=== PATIENT | female | born 1950 | race Caucasian/White ===

== ENCOUNTER 2022-08-22 13:36 | Inpatient (IN) | payer MEDICARE ==
[2022-08-22 14:07] VITALS: BMI 23.4
[2022-08-22] MEDS ORDERED: Ondansetron PF 4 MG/2 ML Vial IVP PRN (19:13)
[2022-08-22] MEDS: Atorvastatin Calcium 10 MG TAB PO SCH (20:52)
[2022-08-22] MEDS: Ascorbic Acid 500 mg Chewable Tablet PO SCH (20:52)
[2022-08-22] MEDS: levETIRAcetam 500 MG TAB PO SCH (20:52)
[2022-08-22] MEDS: Carvedilol 6.25 MG TAB PO SCH (20:52)
[2022-08-22] MEDS: Magnesium Oxide 400 MG TAB PO SCH (20:53)
[2022-08-22] MEDS: Senokot S 8.6-50 MG TAB PO SCH (20:53)
[2022-08-22] MEDS: Lantus 1000 UNITS/10 ML VIAL SC SCH (20:53)
[2022-08-23] MEDS: Carvedilol 6.25 MG TAB PO SCH ×2 (09:09→20:26)
[2022-08-23] MEDS: Allopurinol 100 MG TAB PO SCH (09:10)
[2022-08-23] MEDS: Calcitriol 0.25 MCG CAP PO SCH (09:10)
[2022-08-23] MEDS: Ascorbic Acid 500 mg Chewable Tablet PO SCH ×2 (09:11→20:26)
[2022-08-23] MEDS: glyBURIDE 5 MG TAB PO SCH ×2 (09:11→17:25)
[2022-08-23] MEDS: Ferrous Gluconate 324 MG TAB PO SCH (09:12)
[2022-08-23] MEDS: Famotidine 20 MG TAB PO SCH (09:12)
[2022-08-23] MEDS: Magnesium Oxide 400 MG TAB PO SCH ×2 (09:12→20:29)
[2022-08-23] MEDS: Lantus 1000 UNITS/10 ML VIAL SC SCH ×2 (09:12→20:26)
[2022-08-23] MEDS: Furosemide 40 MG TAB PO SCH (09:12)
[2022-08-23] MEDS: levETIRAcetam 500 MG TAB PO SCH ×2 (10:27→20:26)
[2022-08-23] MEDS: Senokot S 8.6-50 MG TAB PO SCH ×2 (10:28→20:25)
[2022-08-23] MEDS ORDERED: Acetaminophen 500 MG TAB PO PRN (12:56)
[2022-08-23] MEDS ORDERED: HumaLOG 300 UNITS/3 ML VIAL SC PRN (14:11)
[2022-08-23] MEDS ORDERED: Dextrose 50% Abboject 50 ML SYRINGE SLOW IVP PRN (14:11)
[2022-08-23] MEDS ORDERED: Dextrose 5% in Water 1,000 ML IV PRN (14:11)
[2022-08-23] MEDS: HumaLOG 300 UNITS/3 ML VIAL SC PRN ×2 (14:51→17:25)
[2022-08-23] MEDS: Atorvastatin Calcium 10 MG TAB PO SCH (20:26)
[2022-08-24] MEDS: glyBURIDE 5 MG TAB PO SCH ×2 (09:00→17:00)
[2022-08-24] MEDS: Allopurinol 100 MG TAB PO SCH (09:40)
[2022-08-24] MEDS: Calcitriol 0.25 MCG CAP PO SCH (09:40)
[2022-08-24] MEDS: levETIRAcetam 500 MG TAB PO SCH (09:40)
[2022-08-24] MEDS: Magnesium Oxide 400 MG TAB PO SCH (09:40)
[2022-08-24] MEDS: Carvedilol 6.25 MG TAB PO SCH (09:40)
[2022-08-24] MEDS: Ferrous Gluconate 324 MG TAB PO SCH (09:40)
[2022-08-24] MEDS: Lantus 1000 UNITS/10 ML VIAL SC SCH (09:40)
[2022-08-24] MEDS: Famotidine 20 MG TAB PO SCH (09:40)
[2022-08-24] MEDS: Senokot S 8.6-50 MG TAB PO SCH (09:40)
[2022-08-24] MEDS: Ascorbic Acid 500 mg Chewable Tablet PO SCH (09:40)
[2022-08-24] MEDS: Furosemide 40 MG TAB PO SCH (09:40)
[2022-08-24] MEDS ORDERED: Acetaminophen 500 MG TAB PO PRN (21:04)
[2022-08-24] MEDS: Ciprofloxacin 500 MG TAB PO SCH (21:05)
[2022-08-24] MEDS ORDERED: Dextrose 5% in Water 1,000 ML IV PRN (21:15)
[2022-08-24] MEDS ORDERED: Dextrose 50% Abboject 50 ML SYRINGE SLOW IVP PRN (21:15)
[2022-08-24] MEDS ORDERED: Ondansetron PF 4 MG/2 ML Vial IVP PRN (22:43)
[2022-08-24] MEDS: HumaLOG 300 UNITS/3 ML VIAL SC PRN (22:49)
[2022-08-24] MEDS ORDERED: levETIRAcetam 500 MG TAB PO SCH (23:00)
[2022-08-24] MEDS ORDERED: Ascorbic Acid 500 mg Chewable Tablet PO SCH (23:00)
[2022-08-24] MEDS ORDERED: Senokot S 8.6-50 MG TAB PO SCH (23:00)
[2022-08-24] MEDS ORDERED: Atorvastatin Calcium 10 MG TAB PO SCH (23:00)
[2022-08-24] MEDS ORDERED: Magnesium Oxide 400 MG TAB PO SCH (23:00)
[2022-08-24] MEDS ORDERED: Carvedilol 6.25 MG TAB PO SCH (23:00)
[2022-08-24] MEDS ORDERED: Lantus 1000 UNITS/10 ML VIAL SC SCH (23:00)
[2022-08-25] MEDS: Lantus 1000 UNITS/10 ML VIAL SC SCH ×4 (00:32→20:36)
[2022-08-25] MEDS: Carvedilol 6.25 MG TAB PO SCH ×3 (00:32→21:30)
[2022-08-25] MEDS: Ascorbic Acid 500 mg Chewable Tablet PO SCH ×3 (00:32→21:31)
[2022-08-25] MEDS: Atorvastatin Calcium 10 MG TAB PO SCH ×2 (00:32→21:30)
[2022-08-25] MEDS: Senokot S 8.6-50 MG TAB PO SCH ×3 (00:33→21:30)
[2022-08-25] MEDS: levETIRAcetam 500 MG TAB PO SCH ×3 (00:33→21:30)
[2022-08-25] MEDS: Magnesium Oxide 400 MG TAB PO SCH ×3 (00:33→21:33)
[2022-08-25] MEDS: Ciprofloxacin 500 MG TAB PO SCH ×2 (05:49→20:22)
[2022-08-25] MEDS: Allopurinol 100 MG TAB PO SCH (09:11)
[2022-08-25] MEDS: Calcitriol 0.25 MCG CAP PO SCH (09:11)
[2022-08-25] MEDS: glyBURIDE 5 MG TAB PO SCH ×2 (09:11→17:58)
[2022-08-25] MEDS: Ferrous Gluconate 324 MG TAB PO SCH (09:11)
[2022-08-25] MEDS: Furosemide 40 MG TAB PO SCH (09:12)
[2022-08-25] MEDS: Famotidine 20 MG TAB PO SCH (09:13)
[2022-08-25] MEDS: Acetaminophen 500 MG TAB PO PRN (09:13)
[2022-08-25] MEDS: HumaLOG 300 UNITS/3 ML VIAL SC PRN ×2 (12:22→20:36)
[2022-08-26] MEDS: Ciprofloxacin 500 MG TAB PO SCH ×2 (05:15→21:00)
[2022-08-26] MEDS: Carvedilol 6.25 MG TAB PO SCH ×2 (10:04→21:00)
[2022-08-26] MEDS: Allopurinol 100 MG TAB PO SCH (10:05)
[2022-08-26] MEDS: Calcitriol 0.25 MCG CAP PO SCH (10:06)
[2022-08-26] MEDS: Senokot S 8.6-50 MG TAB PO SCH ×2 (10:06→21:00)
[2022-08-26] MEDS: levETIRAcetam 500 MG TAB PO SCH ×2 (10:06→21:00)
[2022-08-26] MEDS: Magnesium Oxide 400 MG TAB PO SCH ×2 (10:07→21:01)
[2022-08-26] MEDS: glyBURIDE 5 MG TAB PO SCH ×2 (10:07→17:45)
[2022-08-26] MEDS: Furosemide 40 MG TAB PO SCH (10:07)
[2022-08-26] MEDS: Ferrous Gluconate 324 MG TAB PO SCH (10:07)
[2022-08-26] MEDS: Ascorbic Acid 500 mg Chewable Tablet PO SCH ×2 (10:07→21:00)
[2022-08-26] MEDS: Famotidine 20 MG TAB PO SCH (10:07)
[2022-08-26] MEDS: Lantus 1000 UNITS/10 ML VIAL SC SCH ×2 (10:08→21:01)
[2022-08-26] MEDS: HumaLOG 300 UNITS/3 ML VIAL SC PRN ×2 (12:39→17:45)
[2022-08-26] MEDS ORDERED: Nystatin Cream 15 GM TUBE TOP SCH (21:00)
[2022-08-26] MEDS: Nystatin Powder 15 GM BOT TOP SCH (21:01)
[2022-08-26] MEDS: Atorvastatin Calcium 10 MG TAB PO SCH (21:01)
[2022-08-27] MEDS: Ciprofloxacin 500 MG TAB PO SCH ×2 (05:21→20:14)
[2022-08-27] MEDS: Nystatin Powder 15 GM BOT TOP SCH ×2 (09:00→22:00)
[2022-08-27] MEDS: Allopurinol 100 MG TAB PO SCH (09:13)
[2022-08-27] MEDS: glyBURIDE 5 MG TAB PO SCH ×2 (09:14→17:54)
[2022-08-27] MEDS: Carvedilol 6.25 MG TAB PO SCH ×2 (09:14→20:14)
[2022-08-27] MEDS: Calcitriol 0.25 MCG CAP PO SCH (09:14)
[2022-08-27] MEDS: Senokot S 8.6-50 MG TAB PO SCH ×2 (09:14→20:18)
[2022-08-27] MEDS: Ferrous Gluconate 324 MG TAB PO SCH (09:15)
[2022-08-27] MEDS: Famotidine 20 MG TAB PO SCH (09:15)
[2022-08-27] MEDS: Furosemide 40 MG TAB PO SCH (09:15)
[2022-08-27] MEDS: Ascorbic Acid 500 mg Chewable Tablet PO SCH ×2 (09:15→20:14)
[2022-08-27] MEDS: Magnesium Oxide 400 MG TAB PO SCH ×3 (09:16→20:19)
[2022-08-27] MEDS: Lantus 1000 UNITS/10 ML VIAL SC SCH ×2 (09:18→22:00)
[2022-08-27] MEDS: levETIRAcetam 500 MG TAB PO SCH ×2 (09:18→20:14)
[2022-08-27] MEDS: HumaLOG 300 UNITS/3 ML VIAL SC PRN (13:18)
[2022-08-27] MEDS: Atorvastatin Calcium 10 MG TAB PO SCH (20:14)
[2022-08-28 05:36] LABS: Anion Gap 13 mmol/L (10-20); BUN (Urea Nitrogen) 59 mg/dL (9.8-20.1); Calc. Creatinine Clearance 17 mL/min (70-130); Calcium 9.8 mg/dL (7.8-10.44); Carbon Dioxide 24 mmol/L (23-31); Chloride 100 mmol/L (98-107); Estimated GFR 19; Glucose 89 mg/dL (83-110); Potassium 4.1 mmol/L (3.5-5.1); Sodium 133 mmol/L (136-145)
[2022-08-28] MEDS: Ciprofloxacin 500 MG TAB PO SCH (06:06)
[2022-08-28] MEDS: Ascorbic Acid 500 mg Chewable Tablet PO SCH ×2 (09:01→21:21)
[2022-08-28] MEDS: glyBURIDE 5 MG TAB PO SCH ×2 (09:01→17:36)
[2022-08-28] MEDS: Calcitriol 0.25 MCG CAP PO SCH (09:01)
[2022-08-28] MEDS: Carvedilol 6.25 MG TAB PO SCH ×2 (09:02→21:21)
[2022-08-28] MEDS: Allopurinol 100 MG TAB PO SCH (09:03)
[2022-08-28] MEDS: levETIRAcetam 500 MG TAB PO SCH ×2 (09:05→21:21)
[2022-08-28] MEDS: Ferrous Gluconate 324 MG TAB PO SCH (09:05)
[2022-08-28] MEDS: Nystatin Powder 15 GM BOT TOP SCH ×2 (09:05→21:23)
[2022-08-28] MEDS: Famotidine 20 MG TAB PO SCH (09:05)
[2022-08-28] MEDS: Magnesium Oxide 400 MG TAB PO SCH ×2 (09:07→21:30)
[2022-08-28] MEDS: Senokot S 8.6-50 MG TAB PO SCH ×2 (09:09→21:00)
[2022-08-28] MEDS: Lantus 1000 UNITS/10 ML VIAL SC SCH (09:11)
[2022-08-28] MEDS: Acetaminophen 500 MG TAB PO PRN (09:12)
[2022-08-28] MEDS: Furosemide 40 MG TAB PO SCH (15:10)
[2022-08-28] MEDS: Atorvastatin Calcium 10 MG TAB PO SCH (21:21)
[2022-08-29] MEDS: Ciprofloxacin 500 MG TAB PO SCH (05:30)
[2022-08-29] MEDS: Magnesium Oxide 400 MG TAB PO SCH ×2 (09:10→21:12)
[2022-08-29] MEDS: levETIRAcetam 500 MG TAB PO SCH ×2 (09:10→21:11)
[2022-08-29] MEDS: glyBURIDE 5 MG TAB PO SCH ×2 (09:10→17:45)
[2022-08-29] MEDS: Ferrous Gluconate 324 MG TAB PO SCH (09:11)
[2022-08-29] MEDS: Carvedilol 6.25 MG TAB PO SCH ×2 (09:11→21:11)
[2022-08-29] MEDS: Calcitriol 0.25 MCG CAP PO SCH (09:12)
[2022-08-29] MEDS: Ascorbic Acid 500 mg Chewable Tablet PO SCH ×2 (09:13→21:12)
[2022-08-29] MEDS: Famotidine 20 MG TAB PO SCH (09:13)
[2022-08-29] MEDS: Allopurinol 100 MG TAB PO SCH (09:13)
[2022-08-29] MEDS: Furosemide 40 MG TAB PO SCH (09:14)
[2022-08-29] MEDS: Nystatin Powder 15 GM BOT TOP SCH ×2 (10:00→21:12)
[2022-08-29] MEDS: Senokot S 8.6-50 MG TAB PO SCH ×2 (10:29→21:00)
[2022-08-29] MEDS: Atorvastatin Calcium 10 MG TAB PO SCH (21:11)
[2022-08-30] MEDS: Ciprofloxacin 500 MG TAB PO SCH (05:14)
[2022-08-30] MEDS: Calcitriol 0.25 MCG CAP PO SCH (09:04)
[2022-08-30] MEDS: Famotidine 20 MG TAB PO SCH (09:04)
[2022-08-30] MEDS: levETIRAcetam 500 MG TAB PO SCH ×2 (09:04→22:09)
[2022-08-30] MEDS: Ascorbic Acid 500 mg Chewable Tablet PO SCH ×2 (09:05→22:08)
[2022-08-30] MEDS: Ferrous Gluconate 324 MG TAB PO SCH (09:05)
[2022-08-30] MEDS: Allopurinol 100 MG TAB PO SCH (09:05)
[2022-08-30] MEDS: Acetaminophen 500 MG TAB PO PRN (09:06)
[2022-08-30] MEDS: glyBURIDE 5 MG TAB PO SCH ×2 (09:06→17:33)
[2022-08-30] MEDS: Carvedilol 6.25 MG TAB PO SCH ×2 (09:08→22:09)
[2022-08-30] MEDS: Magnesium Oxide 400 MG TAB PO SCH ×2 (09:09→22:08)
[2022-08-30] MEDS: Senokot S 8.6-50 MG TAB PO SCH ×2 (09:09→22:10)
[2022-08-30] MEDS: Furosemide 40 MG TAB PO SCH (09:11)
[2022-08-30] MEDS: Nystatin Powder 15 GM BOT TOP SCH ×2 (09:11→22:09)
[2022-08-30] MEDS: HumaLOG 300 UNITS/3 ML VIAL SC PRN (13:04)
[2022-08-30] MEDS: Atorvastatin Calcium 10 MG TAB PO SCH (22:09)
[2022-08-31] MEDS: Ciprofloxacin 500 MG TAB PO SCH (05:05)
[2022-08-31 05:45] LABS: ALT (SGPT) 80 U/L (8-55); AST (SGOT) 58 U/L (5-34); Albumin 2.6 g/dL (3.4-4.8); Alkaline Phosphatase 165 U/L (40-110); Anion Gap 12 mmol/L (10-20); BUN (Urea Nitrogen) 66 mg/dL (9.8-20.1); Bilirubin, Total 0.4 mg/dL (0.2-1.2); Calc. Creatinine Clearance 17 mL/min (70-130); Calcium 9.6 mg/dL (7.8-10.44); Carbon Dioxide 24 mmol/L (23-31); Chloride 105 mmol/L (98-107); Estimated GFR 19; Globulin 4.2 g/dL (2.4-3.5); Glucose 151 mg/dL (83-110); Potassium 4.6 mmol/L (3.5-5.1); Protein, Total 6.8 g/dL (5.8-8.1); Sodium 136 mmol/L (136-145)
[2022-08-31 05:55] LABS: #Basophils 0.1 thou/uL (0.0-0.2); #Eosinphils 0.1 thou/uL (0.0-0.7); #Lymphocytes 2.1 thou/uL (1.20-3.40); #Monocytes 0.6 thou/uL (0.11-0.59); #Neutrophils 5.9 thou/uL (1.40-6.50); %Basophils 1.3 % (0.0-1.0); %Eosinophils 0.9 % (0.0-10.0); %Lymphocytes 23.9 % (21.0-51.0); %Monocytes 7.1 % (0.0-10.0); %Neutrophils 66.8 % (42.0-75.0); Hemoglobin 7.1 g/dL (12.0-16.0); Mean Corpuscular HGB CONC 30.8 g/dL (32.0-36.0); Mean Corpuscular Hemoglobin 28.1 pg (27.0-31.0); Mean Corpuscular Volume 91.3 fl (78.0-98.0); Mean Platelet Volume 8.6 fL (7.4-10.4); Platelet Count 541 10x3/uL (130-400); RBC Distribution Width 16.9 % (11.5-14.5); Red Blood Cell (RBC) Count 2.53 mill/uL (4.20-5.40); White Blood Cell (WBC) Count 8.9 10x3/uL (4.8-10.8)
[2022-08-31 07:12] LABS: MDiff Complete? YES
[2022-08-31] MEDS: levETIRAcetam 500 MG TAB PO SCH ×2 (09:29→20:33)
[2022-08-31] MEDS: Magnesium Oxide 400 MG TAB PO SCH ×2 (09:29→20:33)
[2022-08-31] MEDS: Acetaminophen 500 MG TAB PO PRN (09:30)
[2022-08-31] MEDS: Ferrous Gluconate 324 MG TAB PO SCH (09:30)
[2022-08-31] MEDS: Allopurinol 100 MG TAB PO SCH (09:31)
[2022-08-31] MEDS: Calcitriol 0.25 MCG CAP PO SCH (09:31)
[2022-08-31] MEDS: glyBURIDE 5 MG TAB PO SCH ×2 (09:31→17:14)
[2022-08-31] MEDS: Famotidine 20 MG TAB PO SCH (09:31)
[2022-08-31] MEDS: Carvedilol 6.25 MG TAB PO SCH ×2 (09:32→20:33)
[2022-08-31] MEDS: Nystatin Powder 15 GM BOT TOP SCH ×2 (09:32→20:43)
[2022-08-31] MEDS: Ascorbic Acid 500 mg Chewable Tablet PO SCH ×2 (09:32→20:33)
[2022-08-31] MEDS: Senokot S 8.6-50 MG TAB PO SCH ×2 (09:32→20:44)
[2022-08-31] MEDS: Furosemide 40 MG TAB PO SCH (17:14)
[2022-08-31] MEDS ORDERED: Furosemide 40 MG TAB PO PRN (20:00)
[2022-08-31] MEDS: Atorvastatin Calcium 10 MG TAB PO SCH (20:33)
[2022-08-31] MEDS: HumaLOG 300 UNITS/3 ML VIAL SC PRN (20:38)
[2022-09-01] MEDS: Nystatin Powder 15 GM BOT TOP SCH ×2 (08:23→20:45)
[2022-09-01] MEDS: Calcitriol 0.25 MCG CAP PO SCH (08:23)
[2022-09-01] MEDS: Carvedilol 6.25 MG TAB PO SCH ×3 (08:24→20:44)
[2022-09-01] MEDS: Allopurinol 100 MG TAB PO SCH (08:24)
[2022-09-01] MEDS: Magnesium Oxide 400 MG TAB PO SCH ×2 (08:26→20:45)
[2022-09-01] MEDS: glyBURIDE 5 MG TAB PO SCH ×2 (08:26→16:51)
[2022-09-01] MEDS: Ferrous Gluconate 324 MG TAB PO SCH (08:26)
[2022-09-01] MEDS: Ascorbic Acid 500 mg Chewable Tablet PO SCH ×2 (08:26→20:44)
[2022-09-01] MEDS: Famotidine 20 MG TAB PO SCH (08:27)
[2022-09-01] MEDS: levETIRAcetam 500 MG TAB PO SCH ×2 (08:27→20:44)
[2022-09-01] MEDS: Senokot S 8.6-50 MG TAB PO SCH ×2 (08:29→21:15)
[2022-09-01] MEDS: HumaLOG 300 UNITS/3 ML VIAL SC PRN ×2 (12:55→17:23)
[2022-09-01] MEDS: Atorvastatin Calcium 10 MG TAB PO SCH (20:44)
[2022-09-02 05:36] LABS: #Basophils 0.1 thou/uL (0.0-0.2); #Eosinphils 0.1 thou/uL (0.0-0.7); #Lymphocytes 2.5 thou/uL (1.20-3.40); #Monocytes 0.7 thou/uL (0.11-0.59); #Neutrophils 7.4 thou/uL (1.40-6.50); %Basophils 1.4 % (0.0-1.0); %Eosinophils 0.9 % (0.0-10.0); %Monocytes 6.3 % (0.0-10.0); %Neutrophils 68.4 % (42.0-75.0); Hemoglobin 7.6 g/dL (12.0-16.0); Mean Corpuscular HGB CONC 30.8 g/dL (32.0-36.0); Mean Corpuscular Hemoglobin 28.2 pg (27.0-31.0); Mean Corpuscular Volume 91.6 fl (78.0-98.0); Mean Platelet Volume 8.6 fL (7.4-10.4); Platelet Count 619 10x3/uL (130-400); RBC Distribution Width 17.2 % (11.5-14.5); White Blood Cell (WBC) Count 10.8 10x3/uL (4.8-10.8)
[2022-09-02 05:42] LABS: ALT (SGPT) 55 U/L (8-55); AST (SGOT) 32 U/L (5-34); Albumin 2.7 g/dL (3.4-4.8); Alkaline Phosphatase 138 U/L (40-110); Anion Gap 13 mmol/L (10-20); BUN (Urea Nitrogen) 60 mg/dL (9.8-20.1); Bilirubin, Total 0.3 mg/dL (0.2-1.2); Calc. Creatinine Clearance 18 mL/min (70-130); Calcium 9.8 mg/dL (7.8-10.44); Carbon Dioxide 23 mmol/L (23-31); Chloride 106 mmol/L (98-107); Estimated GFR 21; Globulin 4.1 g/dL (2.4-3.5); Glucose 99 mg/dL (83-110); Potassium 4.8 mmol/L (3.5-5.1); Protein, Total 6.8 g/dL (5.8-8.1); Sodium 137 mmol/L (136-145)
[2022-09-02 06:30] LABS: Anisocytosis MODERATE=16-30 cells (100X) (0-5/hpf); MDiff Complete? YES; Microcytosis SLIGHT = 6-15 cells (100X) (0-5/hpf); Platelet Morphology Comment Appears Increased
[2022-09-02] MEDS: glyBURIDE 5 MG TAB PO SCH ×2 (08:10→19:17)
[2022-09-02] MEDS: Senokot S 8.6-50 MG TAB PO SCH ×2 (08:10→20:27)
[2022-09-02] MEDS: Calcitriol 0.25 MCG CAP PO SCH (08:10)
[2022-09-02] MEDS: Allopurinol 100 MG TAB PO SCH (08:11)
[2022-09-02] MEDS: Carvedilol 6.25 MG TAB PO SCH ×2 (08:11→20:28)
[2022-09-02] MEDS: levETIRAcetam 500 MG TAB PO SCH ×2 (08:11→20:28)
[2022-09-02] MEDS: Ascorbic Acid 500 mg Chewable Tablet PO SCH ×2 (08:12→20:29)
[2022-09-02] MEDS: Famotidine 20 MG TAB PO SCH (08:12)
[2022-09-02] MEDS: Ferrous Gluconate 324 MG TAB PO SCH (08:13)
[2022-09-02] MEDS: Nystatin Powder 15 GM BOT TOP SCH ×2 (08:13→20:31)
[2022-09-02] MEDS: Magnesium Oxide 400 MG TAB PO SCH ×2 (08:13→20:29)
[2022-09-02] MEDS: Atorvastatin Calcium 10 MG TAB PO SCH (20:29)
[2022-09-02] MEDS: HumaLOG 300 UNITS/3 ML VIAL SC PRN (20:30)
[2022-09-03] MEDS: Carvedilol 6.25 MG TAB PO SCH ×2 (08:57→20:44)
[2022-09-03] MEDS: Allopurinol 100 MG TAB PO SCH (08:57)
[2022-09-03] MEDS: Senokot S 8.6-50 MG TAB PO SCH ×2 (08:57→20:43)
[2022-09-03] MEDS: Ferrous Gluconate 324 MG TAB PO SCH (08:58)
[2022-09-03] MEDS: levETIRAcetam 500 MG TAB PO SCH ×2 (08:58→20:43)
[2022-09-03] MEDS: Magnesium Oxide 400 MG TAB PO SCH ×2 (08:58→20:44)
[2022-09-03] MEDS: Famotidine 20 MG TAB PO SCH (08:58)
[2022-09-03] MEDS: Calcitriol 0.25 MCG CAP PO SCH (08:58)
[2022-09-03] MEDS: glyBURIDE 5 MG TAB PO SCH ×2 (08:58→17:42)
[2022-09-03] MEDS: Ascorbic Acid 500 mg Chewable Tablet PO SCH ×2 (08:58→20:43)
[2022-09-03] MEDS: Nystatin Powder 15 GM BOT TOP SCH ×2 (08:59→20:45)
[2022-09-03] MEDS: Atorvastatin Calcium 10 MG TAB PO SCH (20:44)
[2022-09-04] MEDS: Carvedilol 6.25 MG TAB PO SCH ×2 (09:18→20:31)
[2022-09-04] MEDS: Calcitriol 0.25 MCG CAP PO SCH (09:18)
[2022-09-04] MEDS: Allopurinol 100 MG TAB PO SCH (09:18)
[2022-09-04] MEDS: Senokot S 8.6-50 MG TAB PO SCH ×2 (09:18→20:30)
[2022-09-04] MEDS: Ferrous Gluconate 324 MG TAB PO SCH (09:19)
[2022-09-04] MEDS: Nystatin Powder 15 GM BOT TOP SCH ×2 (09:19→20:30)
[2022-09-04] MEDS: Magnesium Oxide 400 MG TAB PO SCH ×2 (09:19→20:31)
[2022-09-04] MEDS: Famotidine 20 MG TAB PO SCH (09:19)
[2022-09-04] MEDS: levETIRAcetam 500 MG TAB PO SCH ×2 (09:19→20:30)
[2022-09-04] MEDS: Ascorbic Acid 500 mg Chewable Tablet PO SCH ×2 (09:19→20:30)
[2022-09-04] MEDS: glyBURIDE 5 MG TAB PO SCH ×2 (09:19→17:11)
[2022-09-04] MEDS: Atorvastatin Calcium 10 MG TAB PO SCH (20:30)
[2022-09-05 06:12] LABS: #Basophils 0.1 thou/uL (0.0-0.2); #Eosinphils 0.1 thou/uL (0.0-0.7); #Lymphocytes 2.1 thou/uL (1.20-3.40); #Monocytes 0.7 thou/uL (0.11-0.59); #Neutrophils 5.8 thou/uL (1.40-6.50); %Basophils 1.3 % (0.0-1.0); %Eosinophils 0.8 % (0.0-10.0); %Lymphocytes 24.5 % (21.0-51.0); %Monocytes 7.6 % (0.0-10.0); %Neutrophils 65.9 % (42.0-75.0); Hemoglobin 7.4 g/dL (12.0-16.0); Mean Corpuscular HGB CONC 31.7 g/dL (32.0-36.0); Mean Corpuscular Hemoglobin 28.6 pg (27.0-31.0); Mean Corpuscular Volume 90.3 fl (78.0-98.0); Mean Platelet Volume 8.8 fL (7.4-10.4); Platelet Count 634 10x3/uL (130-400); RBC Distribution Width 17.1 % (11.5-14.5); Red Blood Cell (RBC) Count 2.59 mill/uL (4.20-5.40); White Blood Cell (WBC) Count 8.7 10x3/uL (4.8-10.8)
[2022-09-05 06:15] LABS: ALT (SGPT) 31 U/L (8-55); AST (SGOT) 15 U/L (5-34); Albumin 2.9 g/dL (3.4-4.8); Alkaline Phosphatase 133 U/L (40-110); Anion Gap 13 mmol/L (10-20); BUN (Urea Nitrogen) 57 mg/dL (9.8-20.1); Bilirubin, Total 0.3 mg/dL (0.2-1.2); Calc. Creatinine Clearance 19 mL/min (70-130); Calcium 10.2 mg/dL (7.8-10.44); Carbon Dioxide 24 mmol/L (23-31); Chloride 106 mmol/L (98-107); Estimated GFR 21; Glucose 167 mg/dL (83-110); Potassium 4.5 mmol/L (3.5-5.1); Protein, Total 6.9 g/dL (5.8-8.1); Sodium 138 mmol/L (136-145)
[2022-09-05 07:11] LABS: Giant Platelets SLIGHT; MDiff Complete? YES
[2022-09-05] MEDS: Allopurinol 100 MG TAB PO SCH (09:21)
[2022-09-05] MEDS: Ferrous Gluconate 324 MG TAB PO SCH (09:22)
[2022-09-05] MEDS: Ascorbic Acid 500 mg Chewable Tablet PO SCH ×2 (09:22→21:12)
[2022-09-05] MEDS: Calcitriol 0.25 MCG CAP PO SCH (09:22)
[2022-09-05] MEDS: Senokot S 8.6-50 MG TAB PO SCH ×2 (09:22→21:12)
[2022-09-05] MEDS: Carvedilol 6.25 MG TAB PO SCH ×2 (09:22→21:12)
[2022-09-05] MEDS: Famotidine 20 MG TAB PO SCH (09:23)
[2022-09-05] MEDS: Magnesium Oxide 400 MG TAB PO SCH ×2 (09:23→21:12)
[2022-09-05] MEDS: glyBURIDE 5 MG TAB PO SCH ×2 (09:23→16:21)
[2022-09-05] MEDS: levETIRAcetam 500 MG TAB PO SCH ×2 (09:25→21:12)
[2022-09-05] MEDS: Nystatin Powder 15 GM BOT TOP SCH ×2 (11:28→21:12)
[2022-09-05] MEDS: HumaLOG 300 UNITS/3 ML VIAL SC PRN ×2 (12:44→18:37)
[2022-09-05] MEDS: Atorvastatin Calcium 10 MG TAB PO SCH (21:12)
[2022-09-06] MEDS: Carvedilol 6.25 MG TAB PO SCH ×2 (09:43→20:58)
[2022-09-06] MEDS: Magnesium Oxide 400 MG TAB PO SCH ×2 (09:43→20:58)
[2022-09-06] MEDS: Senokot S 8.6-50 MG TAB PO SCH ×2 (09:44→20:57)
[2022-09-06] MEDS: Ferrous Gluconate 324 MG TAB PO SCH (09:45)
[2022-09-06] MEDS: Allopurinol 100 MG TAB PO SCH (09:45)
[2022-09-06] MEDS: glyBURIDE 5 MG TAB PO SCH ×2 (09:45→18:20)
[2022-09-06] MEDS: Calcitriol 0.25 MCG CAP PO SCH (09:46)
[2022-09-06] MEDS: Ascorbic Acid 500 mg Chewable Tablet PO SCH ×2 (09:46→20:58)
[2022-09-06] MEDS: Nystatin Powder 15 GM BOT TOP SCH ×2 (09:47→20:58)
[2022-09-06] MEDS: Famotidine 20 MG TAB PO SCH (09:54)
[2022-09-06] MEDS: levETIRAcetam 500 MG TAB PO SCH ×2 (09:54→20:58)
[2022-09-06] MEDS: Atorvastatin Calcium 10 MG TAB PO SCH (20:58)
[2022-09-07] MEDS: Magnesium Oxide 400 MG TAB PO SCH ×2 (08:31→21:11)
[2022-09-07] MEDS: Allopurinol 100 MG TAB PO SCH (08:32)
[2022-09-07] MEDS: glyBURIDE 5 MG TAB PO SCH ×2 (08:32→17:31)
[2022-09-07] MEDS: levETIRAcetam 500 MG TAB PO SCH ×2 (08:32→21:11)
[2022-09-07] MEDS: Carvedilol 6.25 MG TAB PO SCH ×2 (08:33→21:11)
[2022-09-07] MEDS: Ferrous Gluconate 324 MG TAB PO SCH (08:33)
[2022-09-07] MEDS: Calcitriol 0.25 MCG CAP PO SCH (08:33)
[2022-09-07] MEDS: Ascorbic Acid 500 mg Chewable Tablet PO SCH ×2 (08:33→21:11)
[2022-09-07] MEDS: Famotidine 20 MG TAB PO SCH (08:34)
[2022-09-07] MEDS: Senokot S 8.6-50 MG TAB PO SCH ×2 (08:34→21:11)
[2022-09-07] MEDS: Nystatin Powder 15 GM BOT TOP SCH ×2 (08:35→21:12)
[2022-09-07] MEDS: Acetaminophen 500 MG TAB PO PRN (13:49)
[2022-09-07] MEDS: Atorvastatin Calcium 10 MG TAB PO SCH (21:11)
[2022-09-07] MEDS: HumaLOG 300 UNITS/3 ML VIAL SC PRN (21:12)
[2022-09-08] MEDS: Carvedilol 6.25 MG TAB PO SCH ×2 (09:21→21:12)
[2022-09-08] MEDS: Allopurinol 100 MG TAB PO SCH (09:21)
[2022-09-08] MEDS: glyBURIDE 5 MG TAB PO SCH ×2 (09:22→17:10)
[2022-09-08] MEDS: Ferrous Gluconate 324 MG TAB PO SCH (09:22)
[2022-09-08] MEDS: Magnesium Oxide 400 MG TAB PO SCH ×2 (09:22→21:12)
[2022-09-08] MEDS: Calcitriol 0.25 MCG CAP PO SCH (09:22)
[2022-09-08] MEDS: Ascorbic Acid 500 mg Chewable Tablet PO SCH ×2 (09:22→21:12)
[2022-09-08] MEDS: Senokot S 8.6-50 MG TAB PO SCH ×2 (09:22→21:11)
[2022-09-08] MEDS: Famotidine 20 MG TAB PO SCH (09:22)
[2022-09-08] MEDS: Nystatin Powder 15 GM BOT TOP SCH ×2 (09:23→21:11)
[2022-09-08] MEDS: levETIRAcetam 500 MG TAB PO SCH ×2 (09:25→21:12)
[2022-09-08] MEDS: HumaLOG 300 UNITS/3 ML VIAL SC PRN (12:27)
[2022-09-08] MEDS: Atorvastatin Calcium 10 MG TAB PO SCH (21:13)
[2022-09-09] MEDS: Allopurinol 100 MG TAB PO SCH (08:05)
[2022-09-09] MEDS: Carvedilol 6.25 MG TAB PO SCH ×2 (08:05→21:02)
[2022-09-09] MEDS: levETIRAcetam 500 MG TAB PO SCH ×2 (08:06→21:02)
[2022-09-09] MEDS: Calcitriol 0.25 MCG CAP PO SCH (08:06)
[2022-09-09] MEDS: Senokot S 8.6-50 MG TAB PO SCH ×2 (08:06→21:02)
[2022-09-09] MEDS: Ascorbic Acid 500 mg Chewable Tablet PO SCH ×2 (08:06→21:02)
[2022-09-09] MEDS: glyBURIDE 5 MG TAB PO SCH ×2 (08:07→17:19)
[2022-09-09] MEDS: Famotidine 20 MG TAB PO SCH (08:07)
[2022-09-09] MEDS: Magnesium Oxide 400 MG TAB PO SCH ×2 (08:07→21:02)
[2022-09-09] MEDS: Ferrous Gluconate 324 MG TAB PO SCH (08:07)
[2022-09-09] MEDS: Nystatin Powder 15 GM BOT TOP SCH ×2 (08:08→21:30)
[2022-09-09] MEDS: HumaLOG 300 UNITS/3 ML VIAL SC PRN (17:20)
[2022-09-09] MEDS: Atorvastatin Calcium 10 MG TAB PO SCH (21:02)
[2022-09-10] MEDS: Senokot S 8.6-50 MG TAB PO SCH ×2 (08:47→21:12)
[2022-09-10] MEDS: Allopurinol 100 MG TAB PO SCH (08:47)
[2022-09-10] MEDS: Carvedilol 6.25 MG TAB PO SCH ×2 (08:47→21:12)
[2022-09-10] MEDS: Magnesium Oxide 400 MG TAB PO SCH ×2 (08:48→21:13)
[2022-09-10] MEDS: Ferrous Gluconate 324 MG TAB PO SCH (08:48)
[2022-09-10] MEDS: Calcitriol 0.25 MCG CAP PO SCH (08:48)
[2022-09-10] MEDS: glyBURIDE 5 MG TAB PO SCH ×2 (08:48→16:20)
[2022-09-10] MEDS: Famotidine 20 MG TAB PO SCH (08:48)
[2022-09-10] MEDS: Ascorbic Acid 500 mg Chewable Tablet PO SCH ×2 (08:48→21:12)
[2022-09-10] MEDS: levETIRAcetam 500 MG TAB PO SCH ×2 (08:50→21:12)
[2022-09-10] MEDS: Nystatin Powder 15 GM BOT TOP SCH (08:51)
[2022-09-10] MEDS: HumaLOG 300 UNITS/3 ML VIAL SC PRN (12:38)
[2022-09-10] MEDS: Atorvastatin Calcium 10 MG TAB PO SCH (21:12)
[2022-09-11 00:34] LABS: Bilirubin Negative (Negative); Blood, Urine Negative (Negative); Clarity Clear (Clear); Glucose, Urine (Dipstick) Negative (Negative); Ketone, Urine Negative (Negative); Leukocyte Large (Negative); Nitrite Negative (Negative); Protein, Urine (Dipstick) 30 mg/dL (Neg-Trace); Urobilinogen 0.2 mg/dL (Less than 2); pH, Urine 6.5 (5.0-9.0)
[2022-09-11 00:36] LABS: Bacteria/HPF Rare-Few HPF (None Seen); CAUTI Indications for Culture Dysuria,urgency,freq; RBC/HPF None Seen HPF (0-3); Squamous Epithelial 0-3 HPF (0-3); WBC/HPF 21-50 HPF (0-3)
[2022-09-11 00:37] LABS: Urine Culture Reflex Yes Yes
[2022-09-11] MEDS: Nystatin Powder 15 GM BOT TOP SCH ×2 (05:32→08:52)
[2022-09-11 06:00] VITALS: TEMP 98.2
[2022-09-11] MEDS: Famotidine 20 MG TAB PO SCH (08:50)
[2022-09-11] MEDS: Senokot S 8.6-50 MG TAB PO SCH (08:50)
[2022-09-11] MEDS: Ascorbic Acid 500 mg Chewable Tablet PO SCH (08:50)
[2022-09-11] MEDS: Magnesium Oxide 400 MG TAB PO SCH (08:51)
[2022-09-11] MEDS: Allopurinol 100 MG TAB PO SCH (08:51)
[2022-09-11] MEDS: glyBURIDE 5 MG TAB PO SCH (08:51)
[2022-09-11] MEDS: Calcitriol 0.25 MCG CAP PO SCH (08:51)
[2022-09-11] MEDS: levETIRAcetam 500 MG TAB PO SCH (08:52)
[2022-09-11] MEDS: Ferrous Gluconate 324 MG TAB PO SCH (08:52)
[2022-09-11] MEDS: Carvedilol 6.25 MG TAB PO SCH (08:59)
[2022-09-11 11:54] VITALS: BP 135/65
== END 2022-09-11 11:59 | disposition home health service (06) | DRG 84 ==
LOC: BURMED 13:36 → UNDODISIN 08-24 10:06
PROVIDERS: ADMIT Family Medicine; ATTEND Family Medicine
DX: S06.5XAA Traumatic subdural hemorrhage with loss of consciousness status unknown, initial encounter (principal); E11.9 Type 2 diabetes mellitus without complications; E78.5 Hyperlipidemia, unspecified; I10 Essential (primary) hypertension; W19.XXXA Unspecified fall, initial encounter; Z90.710 Acquired absence of both cervix and uterus; Y92.9 Unspecified place or not applicable
CPT/HCPCS: 36415; 36416; 70450; 80048; 80053; 81001; 85025; 87086; J1815

== ENCOUNTER 2022-08-24 10:02 | Emergency (ER) | payer MEDICARE | END 2022-08-24 10:33 | disposition short-term general hospital (02) | LOC: BURERS 10:02 | DX: R41.82 Altered mental status, unspecified (principal); S06.5X0D Traumatic subdural hemorrhage without loss of consciousness, subsequent encounter; E78.2 Mixed hyperlipidemia; I10 Essential (primary) hypertension; X58.XXXD Exposure to other specified factors, subsequent encounter | CPT/HCPCS: 36416; 99285 ==

== ENCOUNTER 2022-10-22 10:39 | Outpatient (CLI) | payer MEDICARE | END 2022-10-22 10:40 | disposition home or self-care (01) | LOC: BURCT 10:39 | PROVIDERS: ATTEND Surgery | DX: I62.00 Nontraumatic subdural hemorrhage, unspecified (principal) | CPT/HCPCS: 70450 ==

== ENCOUNTER 2022-12-07 10:15 | Outpatient (CLI) | payer MEDICARE | END 2022-12-07 10:16 | disposition home or self-care (01) | LOC: BURCT 10:15 | PROVIDERS: ATTEND Surgery | DX: I62.00 Nontraumatic subdural hemorrhage, unspecified (principal) | CPT/HCPCS: 70450 ==

== ENCOUNTER 2023-10-14 12:22 | Inpatient (IN) | payer MEDICARE ==
[2023-10-14 18:16] VITALS: BMI 23.0
[2023-10-14] MEDS: Vancomycin HCl 125 MG Capsule PO SCH (21:20)
[2023-10-14] MEDS: Atorvastatin Calcium 10 MG TAB PO SCH (21:20)
[2023-10-14] MEDS: Lantus 1000 UNITS/10 ML VIAL SC SCH (21:20)
[2023-10-14] MEDS: Famotidine 20 MG TAB PO SCH (21:20)
[2023-10-14] MEDS: Propranolol 10 MG TAB PO SCH (21:20)
[2023-10-15] MEDS: Acetaminophen 325 MG TAB PO SCH (01:20)
[2023-10-15] MEDS: Propranolol HCl 20 MG TAB PO SCH (09:44)
[2023-10-15] MEDS: Nystatin Powder 15 GM BOT TOP PRN (09:45)
[2023-10-15] MEDS: Allopurinol 100 MG TAB PO SCH (09:46)
[2023-10-15] MEDS: Aspirin 81 mg Enteric Coated Tablet PO SCH (09:46)
[2023-10-15] MEDS: Calcitriol 0.25 MCG CAP PO SCH (09:46)
[2023-10-15] MEDS: Cyanocobalamin (Vitamin B-12) 1,000 MCG TAB PO SCH (09:46)
[2023-10-15 18:58] VITALS: BMI 23.0
[2023-10-17 08:17] LABS: Critical Call Chemistry nur.sap@0815; Glucose 34 mg/dL (83-110)
[2023-10-17] MEDS ORDERED: Glucagon 1 MG/ML KIT IM PRN (09:06)
[2023-10-17] MEDS ORDERED: Dextrose 5% in Water 1,000 ML IV PRN (09:06)
[2023-10-17] MEDS ORDERED: HumaLOG 300 UNITS/3 ML VIAL SC PRN (09:06)
[2023-10-17] MEDS ORDERED: Dextrose 50% Abboject 50 ML SYRINGE SLOW IVP PRN (09:06)
[2023-10-17] MEDS: Lantus 1000 UNITS/10 ML VIAL SC SCH (22:44)
[2023-10-18 04:59] LABS: #Basophils 0.1 thou/uL (0.0-0.2); #Lymphocytes 2.1 thou/uL (1.20-3.40); #Monocytes 1.3 thou/uL (0.11-0.59); #Neutrophils 14.6 thou/uL (1.40-6.50); %Basophils 0.5 % (0.0-1.0); %Eosinophils 0.2 % (0.0-10.0); %Lymphocytes 11.7 % (21.0-51.0); %Neutrophils 80.5 % (42.0-75.0); Hematocrit 20.7 % (36.0-47.0); Hemoglobin 6.3 g/dL (12.0-16.0); Mean Corpuscular HGB CONC 30.6 g/dL (32.0-36.0); Mean Corpuscular Hemoglobin 28.3 pg (27.0-31.0); Mean Corpuscular Volume 92.6 fl (78.0-98.0); Mean Platelet Volume 10.4 fL (7.4-10.4); Platelet Count 224 10x3/uL (130-400); RBC Distribution Width 20.4 % (11.5-14.5); Red Blood Cell (RBC) Count 2.24 mill/uL (4.20-5.40); White Blood Cell (WBC) Count 18.1 10x3/uL (4.8-10.8)
[2023-10-18 05:14] LABS: Anisocytosis MODERATE=16-30 cells (100X) (0-5/hpf); Elliptocytes SLIGHT = 2-5 cells (100X) (0-1/hpf); MDiff Complete? YES; Platelet Adequacy Comment Appears Adequate; Tear Drops SLIGHT = 2-5 cells (100X) (0-1/hpf)
[2023-10-18 05:17] LABS: ALT (SGPT) Less than 7 U/L (8-55); AST (SGOT) 6 U/L (5-34); Albumin 1.6 g/dL (3.4-4.8); Alkaline Phosphatase 130 U/L (40-110); Anion Gap 9 mmol/L (10-20); BUN (Urea Nitrogen) 52 mg/dL (9.8-20.1); Bilirubin, Total 0.2 mg/dL (0.2-1.2); Calc. Creatinine Clearance 11 mL/min (70-130); Calcium 7.2 mg/dL (7.8-10.44); Carbon Dioxide 10 mmol/L (23-31); Chloride 127 mmol/L (98-107); Estimated GFR 12; Globulin 2.3 g/dL (2.4-3.5); Glucose 73 mg/dL (83-110); Potassium 3.3 mmol/L (3.5-5.1); Protein, Total 3.9 g/dL (5.8-8.1); Sodium 143 mmol/L (136-145)
[2023-10-18] MEDS: Potassium Chloride 20 MEQ TAB PO SCH (11:13)
[2023-10-18] MEDS: Saccharomyces boulardii 250 MG CAP PO SCH (11:13)
[2023-10-18] MEDS: Sodium Bicarbonate Tab 325 MG TAB PO SCH (11:15)
[2023-10-18] MEDS: HumaLOG 300 UNITS/3 ML VIAL SC PRN (17:32)
[2023-10-19 06:11] LABS: Hemoglobin 10.4 g/dL (12.0-16.0); Mean Corpuscular HGB CONC 30.5 g/dL (32.0-36.0); Mean Corpuscular Hemoglobin 29.1 pg (27.0-31.0); Mean Corpuscular Volume 95.5 fl (78.0-98.0); Mean Platelet Volume 11.2 fL (7.4-10.4); Platelet Count 234 10x3/uL (130-400); RBC Distribution Width 18.7 % (11.5-14.5); Red Blood Cell (RBC) Count 3.56 mill/uL (4.20-5.40); White Blood Cell (WBC) Count 20.4 10x3/uL (4.8-10.8)
[2023-10-19 06:17] LABS: Anion Gap 11 mmol/L (10-20); BUN (Urea Nitrogen) 50 mg/dL (9.8-20.1); Calc. Creatinine Clearance 12 mL/min (70-130); Calcium 7.4 mg/dL (7.8-10.44); Chloride 127 mmol/L (98-107); Estimated GFR 14; Glucose 88 mg/dL (83-110); Potassium 3.6 mmol/L (3.5-5.1); Sodium 143 mmol/L (136-145)
[2023-10-19 06:22] LABS: Carbon Dioxide 9 mmol/L (23-31); Critical Call Chemistry BUR.KJM @ 0621
[2023-10-19 06:55] LABS: Band 1 % (5-11); Lymphocytes 8 % (21-51); MDiff Complete? YES; Monocytes 4 % (0-10); Myelocyte 2 % (0-0); Neutrophil 85 % (42-75); Nucleated RBC (Manual Ct) 1 % (0)
[2023-10-20 06:08] LABS: #Basophils 0.1 thou/uL (0.0-0.2); #Lymphocytes 2.2 thou/uL (1.20-3.40); #Monocytes 1.1 thou/uL (0.11-0.59); #Neutrophils 14.7 thou/uL (1.40-6.50); %Basophils 0.4 % (0.0-1.0); %Eosinophils 0.3 % (0.0-10.0); %Lymphocytes 12.1 % (21.0-51.0); %Monocytes 6.1 % (0.0-10.0); %Neutrophils 81.2 % (42.0-75.0); Hematocrit 31.6 % (36.0-47.0); Hemoglobin 9.6 g/dL (12.0-16.0); Mean Corpuscular HGB CONC 30.3 g/dL (32.0-36.0); Mean Corpuscular Hemoglobin 28.9 pg (27.0-31.0); Mean Corpuscular Volume 95.6 fl (78.0-98.0); Mean Platelet Volume 10.3 fL (7.4-10.4); Platelet Count 214 10x3/uL (130-400); RBC Distribution Width 17.7 % (11.5-14.5); Red Blood Cell (RBC) Count 3.31 mill/uL (4.20-5.40); White Blood Cell (WBC) Count 18.1 10x3/uL (4.8-10.8)
[2023-10-20 06:23] LABS: Anion Gap 12 mmol/L (10-20); BUN (Urea Nitrogen) 48 mg/dL (9.8-20.1); Calc. Creatinine Clearance 13 mL/min (70-130); Calcium 7.5 mg/dL (7.8-10.44); Chloride 126 mmol/L (98-107); Estimated GFR 15; Glucose 177 mg/dL (83-110); Potassium 3.6 mmol/L (3.5-5.1); Sodium 143 mmol/L (136-145)
[2023-10-20 06:28] LABS: Carbon Dioxide 9 mmol/L (23-31); Critical Call Chemistry BUR.HCP @ 0627
[2023-10-20 11:49] VITALS: BP 159/68; TEMP 97.7
[2023-10-22] MEDS ORDERED: Vancomycin HCl 125 MG Capsule PO SCH (09:00)
[2023-11-05] MEDS ORDERED: Vancomycin HCl 125 MG Capsule PO SCH (09:00)
[2023-11-20] MEDS ORDERED: Vancomycin HCl 125 MG Capsule PO SCH (09:00)
[2023-11-29] MEDS ORDERED: Vancomycin HCl 125 MG Capsule PO SCH (09:00)
== END 2023-10-20 11:11 | disposition short-term general hospital (02) | DRG 949 ==
LOC: UNDOADMIN 16:39 → BURMED 16:39
PROVIDERS: ADMIT Family Medicine; ATTEND Family Medicine
PROC: 30233N1 Transfusion of Nonautologous Red Blood Cells into Peripheral Vein, Percutaneous Approach (ICD-10-PCS; principal; 2023-10-18)
DX: S06.5XAD Traumatic subdural hemorrhage with loss of consciousness status unknown, subsequent encounter (principal); A04.72 Enterocolitis due to Clostridium difficile, not specified as recurrent; E87.20 Acidosis, unspecified; K92.2 Gastrointestinal hemorrhage, unspecified; N18.4 Chronic kidney disease, stage 4 (severe); W18.30XD Fall on same level, unspecified, subsequent encounter; M10.9 Gout, unspecified; Z79.82 Long term (current) use of aspirin; Z79.899 Other long term (current) drug therapy; Z90.710 Acquired absence of both cervix and uterus; Z79.4 Long term (current) use of insulin; R53.81 Other malaise; E78.5 Hyperlipidemia, unspecified; E11.22 Type 2 diabetes mellitus with diabetic chronic kidney disease; Z87.891 Personal history of nicotine dependence; I12.9 Hypertensive chronic kidney disease with stage 1 through stage 4 chronic kidney disease, or unspecified chronic kidney disease; D69.6 Thrombocytopenia, unspecified
CPT/HCPCS: 36415; 36416; 36430; 80048; 80053; 82947; 85025; 86850; 86900; 86901; J1815; P9016